=== PATIENT | female | born 2000 | race Caucasian/White ===

== ENCOUNTER 2020-09-30 10:22 | Day surgery (SDC) | payer OTHER, MEDICAID ==
[2020-09-30] VITALS (7 sets, daily range): BP systolic 116–153; BP diastolic 68–89; PULSE 49–64; TEMP 98–98.2
[~2020-09-30] VITALS: Ht 165.1 cm; Wt 120.6 kg
[~2020-09-30 10:22] MED LIST: CATAPRES-T0.1 MG/24 TD; LEVOTHYROXINE0.05 M1 PO; VYVANCE
[2020-09-30] MEDS ORDERED: MIRALAX119G PO (11:24)
[2020-09-30] MEDS ORDERED: SYNTHROID 0.10.15 MG PO (11:24)
[2020-09-30] MEDS ORDERED: TYLENOL 325MG325 MG PO (11:25)
--- NOTE | 2020-09-30 11:26 | NUR ---
TO RM AT 1055- CALL LIGHT IN REACH ELIZABETH SANTANA AT BEDSIDE.
--- NOTE | 2020-09-30 12:45 | NUR ---
TO BAY 4 PER CART FROM ENDOSCOPY. ALERT ORIENTED X3, TALKING TO STAFF AND FIANCE'. AMBULATED FROM CART TO RECLINER.
--- NOTE | 2020-09-30 13:00 | NUR ---
DR MEJIA INTO TALK WITH PATIENT AND HER FIANCE'.
--- NOTE | 2020-09-30 13:30 | NUR ---
AMBULATED TO BATHROOM AND VOIDED. RECEIVED 2ND CUP OF WATER AND CRACKERS.
--- NOTE | 2020-09-30 13:58 | NUR ---
RECEIVED DISCHARGE INSTRUCTIONS AND VERBALIZED UNDERSTANDING WITH PARMINDER' AT BEDSIDE.
--- NOTE | 2020-09-30 14:00 | NUR ---
1400-Received report from EDGARDO Lindquist and assumed care of patient. She is sitting upright in chair and reports feeling mildly nauseated. Reports abdominal pain is 2/10 and tolerable. She is prepared for discharge home and went over instructions with previous RN. Denies any questions at this time. Vitals are stable. Will medicate with prn zofran for nausea as she has an hour drive home. 1410-Zofran 4mg IV given at this time for nausea. 1420-IV site dc'd and tip of catheter intact. Cotton ball and coban wrap applied to removal site. Patient is getting dressed and ready for discharge home.
--- NOTE | 2020-09-30 14:30 | NUR ---
1430-Patient is dressed and ready for discharge home. Vitals remain stable. She reports nausea is improving. 1440-Taken via wheelchair and assisted into private vehicle with her fiance. Belongings and discharge instructions are with her.
== END 2020-09-30 14:41 | disposition home or self-care (01) ==
LOC: SDCO 10:22
DX: K80.50 Calculus of bile duct without cholangitis or cholecystitis without obstruction (principal); K80.20 Calculus of gallbladder without cholecystitis without obstruction; Z20.822 Contact with and (suspected) exposure to COVID-19; E03.9 Hypothyroidism, unspecified; E66.9 Obesity, unspecified; Z79.890 Hormone replacement therapy
CPT/HCPCS: C1769; J2405; J2704; J3010; J7030; Q9967